=== PATIENT | female | born 1995 | race Caucasian/White ===

== ENCOUNTER 2023-10-14 18:10 | Emergency (ER) | payer MEDICAID ==
[~2023-10-14] VITALS: Ht 154.9 cm; Wt 61.7 kg
[2023-10-14 18:19] VITALS: BP 112/73; PULSE 81; RESP 18; TEMP 98.4; O2SAT 100
[2023-10-14] MEDS ORDERED: IBUP-2213 PO (19:55)
== END 2023-10-14 20:10 | disposition home or self-care (01) ==
LOC: MED 18:10
DX: S63.502A Unspecified sprain of left wrist, initial encounter (principal); Z79.899 Other long term (current) drug therapy; Z88.1 Allergy status to other antibiotic agents; W18.39XA Other fall on same level, initial encounter; Y92.89 Other specified places as the place of occurrence of the external cause; Y93.89 Activity, other specified; Y99.8 Other external cause status
CPT/HCPCS: 73110; 99283